=== PATIENT | female | born 1975 | race Hispanic/Latino ===

== ENCOUNTER 2017-05-24 10:58 | Outpatient (CLI) | payer OTHER ==
[2017-05-24 17:55] LABS: Iron 17 ug/dL (50-170); Iron Binding Capacity, Total 441 mcg/dL (265-497)
== END 2017-05-24 10:59 | disposition home or self-care (01) ==
LOC: NAV LAB 10:58
PROVIDERS: ATTEND Family Medicine
DX: D53.9 Nutritional anemia, unspecified (principal)
CPT/HCPCS: 82728; 83540; 83550

== ENCOUNTER 2018-05-11 10:00 | Outpatient (CLI) | payer OTHER ==
--- NOTE | 2018-05-11 13:32 | ULT ---
GALLBLADDER ULTRASOUND: HISTORY: Right upper quadrant pain. Anuric x2 months. Evaluate for cholecystitis. COMPARISON: None. TECHNIQUE: Utilizing a Multi-Hertz transducer, sonographic imaging of the right upper quadrant is performed in t he longitudinal and transverse planes. FINDINGS: The visualized hepatic parenchyma has a normal echotexture. No hepatic masses or intrahepatic biliar y dilatation. The contour of the hepatic margin is maintained. The head and proximal pancreatic body have a normal echotexture. The remainder of the pancreas is ob scured by bowel gas. The right hepatic lobe measures 15 cm. Common bile duct diameter is difficult to appreciate. No sonographic evidence of cholelithiasis, gallbladder wall thickening, or pericholecystic fluid. Ne gative Glover sign. Right kidney: No hydronephrosis. Maximum dimension 11.1 cm. IMPRESSION: 1. Limited evaluation of the common bile duct. 2. No sonographic evidence of cholelithiasis or cholecystitis. POS: [facility]
== END 2018-05-11 10:01 | disposition home or self-care (01) ==
LOC: NAV ULT 10:00
PROVIDERS: ATTEND Family Medicine
DX: K80.20 Calculus of gallbladder without cholecystitis without obstruction (principal)
CPT/HCPCS: 76705

== ENCOUNTER 2020-04-08 15:42 | Emergency (ER) | payer OTHER, SELFPAY ==
[2020-04-09 13:26] LABS: SARS-CoV-2 by NAA DETECTED (NotDetected)
[2020-04-09 13:27] LABS: SARS-CoV-2 MS2 Positive; SARS-CoV-2 N Gene Positive; SARS-CoV-2 S Gene Positive; SARS-CoV-2 orf1ab Positive
== END 2020-04-08 16:27 | disposition home or self-care (01) ==
LOC: NAV ERS 15:42
DX: U07.1 COVID-19 (principal)
CPT/HCPCS: 87635; 99283; U0003

== ENCOUNTER 2024-02-07 13:14 | Emergency (ER) | payer OTHER, SELFPAY ==
[2024-02-07] MEDS ORDERED: Acetaminophen 500 MG TAB ONE (13:45)
[2024-02-07 14:52] LABS: White Blood Cell (WBC) Count 10.2 10x3/uL (4.8-10.8)
[2024-02-07 14:53] LABS: #Basophils 0.1 thou/uL (0.0-0.2); #Lymphocytes 0.9 thou/uL (1.20-3.40); #Monocytes 0.7 thou/uL (0.11-0.59); #Neutrophils 8.5 thou/uL (1.40-6.50); %Basophils 0.6 % (0.0-1.0); %Eosinophils 0.2 % (0.0-10.0); %Lymphocytes 8.7 % (21.0-51.0); %Monocytes 7.3 % (0.0-10.0); %Neutrophils 83.2 % (42.0-75.0); Hemoglobin 8.1 g/dL (12.0-16.0); Manual Diff?? NO; Mean Corpuscular HGB CONC 28.1 g/dL (32.0-36.0); Mean Corpuscular Volume 64.2 fl (78.0-98.0); Mean Platelet Volume 6.9 fL (7.4-10.4); Platelet Count 382 10x3/uL (130-400); RBC Distribution Width 16.2 % (11.5-14.5); Red Blood Cell (RBC) Count 4.51 mill/uL (4.20-5.40)
[2024-02-07 15:01] LABS: ALT (SGPT) 21 U/L (8-55); AST (SGOT) 30 U/L (5-34); Alkaline Phosphatase 93 U/L (40-110); Anion Gap 16 mmol/L (10-20); BUN (Urea Nitrogen) 7 mg/dL (7.0-18.7); Bilirubin, Total 0.5 mg/dL (0.2-1.2); Calc. Creatinine Clearance 0 mL/min (70-130); Calcium 9.4 mg/dL (7.8-10.44); Carbon Dioxide 22 mmol/L (22-29); Chloride 99 mmol/L (98-107); Estimated GFR 107; Globulin 4.3 g/dL (2.4-3.5); Glucose 108 mg/dL (70-105); Potassium 3.9 mmol/L (3.5-5.1); Protein, Total 8.3 g/dL (6.0-8.3); Sodium 133 mmol/L (136-145)
[2024-02-07 15:26] LABS: Bilirubin Negative (Negative); Blood, Urine Small (Negative); Clarity Clear (Clear); Glucose, Urine (Dipstick) Negative (Negative); Ketone, Urine Negative (Negative); Leukocyte Moderate (Negative); Nitrite Positive (Negative); Protein, Urine (Dipstick) Negative (Neg-Trace); Urobilinogen 0.2 mg/dL (Less than 2); pH, Urine 6.5 (5.0-9.0)
[2024-02-07 15:27] LABS: Influenza A by NAA Not Detected (NotDetected); Influenza B by NAA Not Detected (NotDetected); SARS-CoV-2 NAA Rapid Test Not Detected (NotDetected)
[2024-02-07 15:28] LABS: Specific Gravity, Urine 1.004 (1.002-1.036)
[2024-02-07 15:29] LABS: Bacteria/HPF 2+ HPF (None Seen); CAUTI Indications for Culture Fever or rigors; RBC/HPF 0-3 HPF (0-3); Squamous Epithelial 0-3 HPF (0-3); Urine Culture Reflex No No
[2024-02-07] MEDS ORDERED: cefTRIAXone (ROCEPHIN) 2 GM VIAL ONE (16:03)
[2024-02-07] MEDS ORDERED: Sodium Chloride 0.9% 100 ML ONE (16:03)
== END 2024-02-07 16:55 | disposition home or self-care (01) ==
LOC: NAV ERS 13:14
DX: N30.00 Acute cystitis without hematuria (principal)
CPT/HCPCS: 71046; 80053; 81001; 83605; 85025; 87040; 87077; 87086; 87186; 96365; J0696; J3490